=== PATIENT | male | born 1990 | race Two or more races ===

== ENCOUNTER 2018-08-01 16:23 | Emergency (ER) | payer SELFPAY ==
[~2018-08-01] VITALS: Ht 172.7 cm; Wt 96.0 kg
[2018-08-01] MEDS ORDERED: IBUPROFEN 400MG TABLET PO ONE (21:00)
[2018-08-01] MEDS ORDERED: IBUPROFEN 800MG TABLET PO ONE (21:30)
[2018-08-01 21:33] VITALS: BP 136/60
[2018-08-01 22:52] LABS: BASOPHILS % 0.3 % (0.0-2.0); EOSINOPHILS % 0.7 % (0.0-5.0); HEMATOCRIT. 43.4 % (42.0-52.0); HEMOGLOBIN. 14.9 g/dL (14.0-18.0); LYMPHOCYTES % 28.8 % (20.0-50.0); MEAN CORPUSCULAR HEMOGLOBIN 29.5 pg (28.0-32.0); MEAN CORPUSCULAR VOLUME 85.7 fL (80.0-94.0); MEAN PLATELET VOLUME 8.7 fl (7.4-10.4); MONOCYTES % 5.4 % (2.0-8.0); NEUTROPHILS % 64.8 % (40.0-76.0); PLATELET 253 x1000/uL (130-400); RED BLOOD CELL COUNT 5.07 mill/uL (4.7-6.1); RED CELL DISTRIBUTION WIDTH 13.6 % (11.6-14.6)
[2018-08-01 22:57] LABS: CHLORIDE 103 mEq/L (98-107)
[2018-08-01 23:00] LABS: PARTIAL THROMBOPLASTIN TIME 26.4 sec (23.4-31.0); PROTHROMBIN TIME 10.2 sec (9.1-11.1)
[2018-08-01 23:06] LABS: CREATINE KINASE 162 IU/L (39-308)
== END 2018-08-02 01:02 | disposition home or self-care (01) ==
LOC: ER 16:23
DX: R07.89 Other chest pain (principal)
CPT/HCPCS: 36415; 71045; 82550; 84484; 93005; 99284